=== PATIENT | female | born 1935 | race Hispanic/Latino ===

== ENCOUNTER → 2017-11-08 | Day surgery (SDC) | payer MEDICARE, OTHER ==
[2017-11-07 14:34] LABS: BASOPHILS % 0.4 % (0.0-1.0); EOSINOPHILS # (AUTO) 0.1 (0.0-0.4); EOSINOPHILS % 1.5 % (0.0-6.0); HEMATOCRIT 41.7 % (34.2-44.1); HEMOGLOBIN 13.5 g/dL (12.0-16.0); LYMPHOCYTES # (AUTO) 2.3 (1.0-3.2); LYMPHOCYTES % 34.9 % (18.0-39.1); MEAN CORPUSCULAR HEMOGLOBIN 33.7 pg (28-32); MEAN CORPUSCULAR HGB CONC 32.4 g/dL (31-35); MONOCYTES # (AUTO) 0.5 (0.2-0.8); MONOCYTES % 7.8 % (4.4-11.3); NEUTROPHILS # (AUTO) 3.7 (2.1-6.9); NEUTROPHILS % 55.3 % (38.7-80.0); PLATELET COUNT 253 x10e3/uL (140-360); RED BLOOD COUNT 4.01 x10e6/uL (3.6-5.1); RED CELL DISTRIBUTION WIDTH 12.4 % (11.7-14.4)
[~2017-11-08] MED LIST: ALBUTEROL0.63 MG/3 INH; BETADINE30 ML TOP; CENTRUM SILVER1 EAC3 PEG; ESMOLOL HCL 100MG/10ML 10 MG/ML VIAL ONE; EVISTA60 MG PEG; FENTANYL CITRATE/PF 100MCG/2 ML INJ ONE; FOLIC ACID1 MG PEG; MIRTAZAPINE15 MG PEG; OSCAL PEG; PANTOPRAZOLE SO40 MG PEG; PRAVASTATIN SOD40 MG PEG; PROPOFOL IV EMULSION 10 MG/ML 50 ML VIAL ONE; RANITIDINE HCL300 M1 PEG; VIT B12 PEG
[2017-11-08 15:35] VITALS: BP 135/65
--- NOTE | 2017-11-08 15:56 | Operative Report ---
DATE OF PROCEDURE: November 08, 2017 REFERRING PHYSICIAN: Liam Shay MD PROCEDURE PERFORMED: Esophagogastroduodenoscopy and percutaneous endoscopic gastrostomy tube replacement. INDICATIONS FOR THE PROCEDURE: Dysphagia, G-tube dependent, dysfunctional G-tube. MEDICATION: Patient was done under MAC. Please see anesthesiologist's note. PROCEDURE: With the patient in the left lateral decubitus position, the flexible fiberoptic Olympus gastroscope was introduced into the esophagus under direct visualization without any difficulty. There was some patchy erythema noted in the distal esophagus. The scope was then advanced with ease into the stomach. The mucosa overlying the antrum and the body revealed some patchy erythema. The pylorus was of normal contour and shape. It was intubated with ease, and the scope was advanced all the way to the 2nd portion of the duodenum. The scope was then withdrawn slowly. Mucosa overlying the proximal 2nd portion and the duodenal bulb appeared to be within normal limits. The scope was then withdrawn back into the stomach and retroflexed. Mucosa overlying the fundus and cardia appeared to be within normal limits. The scope was then straightened out. The balloon-tipped G-tube was then removed in the usual fashion. PEG tube replacement was carried out through the old G-tube stoma. The scope was subsequently withdrawn after documenting a good positioning of the intragastric bumper. Patient tolerated the procedure well. IMPRESSION 1. Mild distal esophagitis. 2. Gastritis, mild. 3. Percutaneous endoscopic gastrostomy tube placement carried out in the usual fashion through the old gastrostomy tube stoma. PLAN: Can use G-tube upon return to home. Job#: [id number] cc:LIAM SHAY MD
== END | disposition home or self-care (01) ==
LOC: OR 12:56
PROVIDERS: ATTEND Internal Medicine Gastroenterology
DX: K94.23 Gastrostomy malfunction (principal); K29.70 Gastritis, unspecified, without bleeding; K20.9 Esophagitis, unspecified; N18.9 Chronic kidney disease, unspecified; K21.9 Gastro-esophageal reflux disease without esophagitis; I44.7 Left bundle-branch block, unspecified; Z01.810 Encounter for preprocedural cardiovascular examination; Z01.812 Encounter for preprocedural laboratory examination; Z85.21 Personal history of malignant neoplasm of larynx
CPT/HCPCS: 36415; 43246; 85025; 93005

== ENCOUNTER 2018-08-01 19:46 | Observation (INO) | payer MEDICARE ==
[~2018-08-01] VITALS: Ht 154.9 cm; Wt 60.8 kg
[~2018-08-01 19:46] MED LIST changes: -ESMOLOL HCL 100MG/10ML 10 MG/ML VIAL ONE; -FENTANYL CITRATE/PF 100MCG/2 ML INJ ONE; -PROPOFOL IV EMULSION 10 MG/ML 50 ML VIAL ONE
--- OUTSIDE RECORDS SUMMARY | 2018-08-01 19:49 | XMS REPORT ---
[facility] Address Unknown Phone Unavailable Care Team Providers Care Coring Machine Operator Name Role Phone Unavailable Unavailable Payers Payer Name Policy Type Policy Number Effective Date Expiration Date Problems This patient has no known problems. Allergies, Adverse Reactions, Alerts Allergy Name Allergy Type Status Severity Reaction(s) Onset Date Inactive Date Treating Clinician Comments No Known Allergies DA Active U 2017-04-20 00:00:00 Medications This patient has no known medications.
[2018-08-01] MEDS ORDERED: D5.45%NS/KCL 20MEQ 1,000 ML IV ONE (23:00)
[2018-08-01] MEDS ORDERED: ONDANSETRON HCL INJ 2MG/ML 2ML 2 MG/ML VIAL IV PRN (23:00)
[2018-08-01 23:11] LABS: BASOPHILS % 0.4 % (0.0-1.0); EOSINOPHILS # (AUTO) 0.2 (0.0-0.4); EOSINOPHILS % 3.4 % (0.0-6.0); HEMATOCRIT 40.4 % (34.2-44.1); HEMOGLOBIN 13.4 g/dL (12.0-16.0); LYMPHOCYTES # (AUTO) 1.5 (1.0-3.2); LYMPHOCYTES % 25.8 % (18.0-39.1); MEAN CORPUSCULAR HEMOGLOBIN 33.6 pg (28-32); MEAN CORPUSCULAR HGB CONC 33.2 g/dL (31-35); MEAN CORPUSCULAR VOLUME 101.3 fL (81-99); MONOCYTES # (AUTO) 0.6 (0.2-0.8); NEUTROPHILS # (AUTO) 3.3 (2.1-6.9); NEUTROPHILS % 59.2 % (38.7-80.0); PLATELET COUNT 221 x10e3/uL (140-360); RED BLOOD COUNT 3.99 x10e6/uL (3.6-5.1)
[2018-08-01 23:22] LABS: INR 0.87; PARTIAL THROMBOPLASTIN TIME 28.4 seconds (23.8-35.5); PROTHROMBIN TIME 12.3 seconds (11.9-14.5)
[2018-08-01 23:28] LABS: ANION GAP 14.7 mmol/L (8-16); BLOOD UREA NITROGEN 28 mg/dL (7-26); CALCIUM 9.6 mg/dL (8.4-10.2); CARBON DIOXIDE 26 mmol/L (22-29); CHLORIDE 103 mmol/L (98-107); GLUCOSE 84 mg/dL (74-118); POTASSIUM 4.7 mmol/L (3.5-5.1); SODIUM 139 mmol/L (136-145)
--- NOTE | 2018-08-01 23:58 | NUR ---
Got report from Elizabeth, ER nurse. call light within reach. family at bedside. patient has a trach and will mouth words in ugandan, understands some israeli. patient is A&Ox3. family helped with admission
[2018-08-02] VITALS (7 sets, daily range): BP systolic 117–141; BP diastolic 54–63
[2018-08-02 00:01] LABS: BUN/CREATININE RATIO 33 (6-25); CREATININE, SERUM 0.81 mg/dL (0.57-1.11); EST GLOMERULAR FILTRATION RATE > 60 ML/MIN (60-)
[2018-08-02] MEDS ORDERED: MIRTAZAPINE7.5 MG PEG (00:51)
[2018-08-02] MEDS ORDERED: PRAVASTATIN SOD20 MG PEG (00:52)
[2018-08-02] MEDS ORDERED: DICYCLOMINE HCL10 MG PEG (00:54)
[2018-08-02] MEDS ORDERED: METAMUCIL POWD174 GM PEG (00:55)
--- NOTE | 2018-08-02 04:53 | History and Physical ---
PRIMARY CARE DOCTOR: Arash Colindres MD CHIEF COMPLAINT: Malfunctioning PEG tube. HISTORY OF PRESENT ILLNESS: Ms. Aparicio is a pleasant 82-year-old female with nonfunctioning PEG tube. The patient was in usual state of health up to the last day. The last day there was increasing drainage noted from PEG tube. Attempts were made to troubleshoot. It was not clear initially why the patient was wetting the area. The patient's stoma site was covered with feeds and was unable to be kept dry. Eventually, the daughter noted a tear in the shaft of the PEG tube. She contacted her doctor and she was ordered to come to the emergency room. In the emergency room, it was confirmed that the PEG tube was dysfunctional with a tear. She was admitted to observation for rapid correction of this issue. As the PEG tube had a special lock on it, GI specialty services was required to change it out. 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 The patient had local excision. The patient had radiation therapy with the ENT doctor. The patient had tracheostomy tube #6 cuffless Shiley, which is in place and is being changed out every 1 to 2 months. The patient had to get a PEG tube as well due to radiation related dysphagia. Last change of PEG tube was in November 2017 and the patient's family is aware. PAST MEDICAL HISTORY: GERD, vocal cord cancer status post local excision and radiation, tracheostomy tube, hysterectomy, and knee status post surgery. MEDICATIONS: Medication list reviewed per the chart record. ALLERGIES: NO KNOWN DRUG ALLERGIES. SOCIAL HISTORY: No smoking. No drinking. No drugs. The patient with very supportive family. FAMILY HISTORY: Noncontributory to this. REVIEW OF SYSTEMS: The patient cannot disclose as she is not talking. Tracheostomy is open and cuffless. OBJECTIVE: VITAL SIGNS: Afebrile, vital signs stable, reviewed per the chart record. GENERAL: In no acute distress, alert and calm. HEENT: Normocephalic and atraumatic. NECK: Supple. Throat midline. LUNGS: Bilateral air entry, rare rhonchi, no wheeze. CARDIOVASCULAR: S1, S2. No murmurs, rubs, or gallops. ABDOMEN: Soft and nontender. EXTREMITIES: No clubbing, no cyanosis, there is no edema. INTEGUMENT: No rash or purpura. LABORATORY DATA: 5.6 white count, 40 hematocrit. 4.7 potassium, 28 BUN, 0.8 creatinine. Coagulation times normal. Platelets are 221. IMPRESSION AND PLAN: 1. Malfunction PEG tube. 2. Dysphagia, cannot take oral intake. 3. Vocal cord cancer in April 2017, status post surgery and XRT. 4. History of tracheostomy tube, cuffless. 5. Gastroesophageal reflux disease. 6. History of raloxifene use, unknown to me reason. 7. Hyperlipidemia. Maintain tracheostomy tube in place. The patient goes for endoscopy backup cuff tracheostomy tube 6.0 any even 4.0 should be made available with cuff in case ventilation is needed. By history, the family says the tracheostomy tube can be changed out without any special guidance or difficulty. N.p.o. Tentative endoscopy for PEG tube replacement. If it goes well, the patient can possibly be discharged very soon. Follow up closely. Some supportive IV fluid, while the patient is n.p.o. Thank you very much, Dr. Colindres, for allowing me a chance to participate in the care of Ms. Aparicio. Do not hesitate to contact me if I can help in anyway. MD GIDEON Faria/LISA /[id number]
--- NOTE | 2018-08-02 07:08 | NUR ---
patient in bed. Call light within reach. Gave report to oncoming nurse
--- NOTE | 2018-08-02 07:30 | NUR ---
Pt in bed AAOx3 in no acute distress noted, trach collar in place with humidified O2, patient mouthing responses to conversation and nods to response yes. She is lying comfortably in bed. Informed to be NPO for a scheduled PEG tube repair and possible EGD. Pt nodded to response her understanding of the plan of care. Instructed to use her call light for assistance and bed alarm is activated to response when pt gets oob to bedside commode. IVF infusing well to RAC with no signs of infiltration. Will continue to monitor.
--- NOTE | 2018-08-02 10:05 | NUR ---
Patient off unit to Endo with family at side.
--- NOTE | 2018-08-02 12:00 | NUR ---
Received pt from PACU via bed s/p peg tube repair. Peg tube site CDI. She is aaox3, resp even and non labored 3L humidified O2 via trach collar. Pt denies pain. Instructed to call for assistance. Will cont to monitor.
--- NOTE | 2018-08-02 12:05 | Operative Report ---
DATE OF PROCEDURE: 08/02/2018 SURGEON: Hernan Ambrose MD PROCEDURE: Esophagogastroduodenoscopy with PEG tube replacement. INDICATIONS FOR PROCEDURES: Dysfunctional G-tube, history of vocal cord cancer, PEG tube dependent. MEDICATIONS: The patient was done under MAC, please see anesthesiologist's note. 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 There was some patchy erythema noted in distal esophagus. Mucosa overlying the antrum and the body revealed some patchy erythema. Pylorus was of normal contour and shape, it was intubated with ease and the scope was advanced all the way to the proximal second portion, it was then withdrawn slowly whatever was visualized. The proximal second portion and duodenal bulb appeared to be within normal limits. The scope was then withdrawn back into the stomach and retroflexed, mucosa overlying the fundus and cardia appeared to be within normal limits. The scope was then straightened out. The OG tube was removed per the pull-traction method. PEG tube replacement was carried out in usual fashion through the OG tube stoma. The scope was subsequently withdrawn after documenting a good positioning of the intragastric bumper. The patient tolerated the procedure well. IMPRESSION AND PLAN: 1. Distal esophagitis, mild. 2. Gastritis, mild. 3. PEG tube replacement carried out in usual fashion through the OG tube stoma. The patient tolerated the procedure well. Can use G-tube upon return to floor. Hernan Ambrose MD [facility] /[id number] cc: Arash Colindres MD
--- NOTE | 2018-08-02 12:18 | NUR ---
Per Dr. Gerardo Ambrose patient may be discharged home today.
[2018-08-02] MEDS ORDERED: LIDOCAINE HCL 2% LOCAL INJ 5 ML SDV VIAL INJ ONE (17:22)
[2018-08-02] MEDS ORDERED: PROPOFOL IV EMULSION 10 MG/ML 50 ML VIAL ONE (17:22)
--- NOTE | 2018-08-03 03:52 | Discharge Summary ---
PRIMARY CARE DOCTOR: Arash Colindres MD PRIMARY DIAGNOSIS: Malfunction PEG tube. SECONDARY DIAGNOSES: Include: 1. Postoperative stay, status post PEG tube placement. 2. Dysphagia, severe, and cannot take oral intake. 3. Vocal cord cancer in April 2017, status post surgery and XRT. 4. History of tracheostomy tube. 5. Gastroesophageal reflux disease. 6. Hyperlipidemia. HOSPITAL COURSE: Ms. Aparicio was seen and examined at bedside and was found to be a tear in her PEG tube. She was admitted for observation as she was having no other access for oral intake nor fluid or hydration intake. The patient had endoscopic replacement of PEG tube the following day by Dr. Hernan Ambrose, gastrointestinal specialist. Thereafter, the patient was allowed to discharge for an outpatient followup with Dr. Min Tanner, her ENT doctor as well as Dr. Colindres. MEDICATIONS ON DISCHARGE: See medicine list for details. DIET: Resume tube feeding. ACTIVITY: As tolerated, assist device is by walker. FOLLOWUP: Followup with Dr. Min Tanner, Dr. Arash Colindres, and Dr. Hernan Ambrose. Greater than 30 minutes spent in coordination and care for discharge planning. MD GIDEON Faria/LISA /[id number]
== END 2018-08-02 14:15 | disposition home or self-care (01) ==
LOC: ER 19:46 → ERHOLD 22:57 → IMCU 23:58
PROVIDERS: ADMIT Internal Medicine Critical Care Medicine; ATTEND Internal Medicine Critical Care Medicine
DX: K94.23 Gastrostomy malfunction (principal); D64.9 Anemia, unspecified; Z85.21 Personal history of malignant neoplasm of larynx; R13.10 Dysphagia, unspecified; K21.9 Gastro-esophageal reflux disease without esophagitis; E78.5 Hyperlipidemia, unspecified; Z93.0 Tracheostomy status; K21.0 Gastro-esophageal reflux disease with esophagitis; K29.70 Gastritis, unspecified, without bleeding
CPT/HCPCS: 36415; 43246; 80048; 85025; 85610; 85730; 99284; G0378 ×2; J2001; J2704

== ENCOUNTER → 2018-08-20 | Outpatient (CLI) | payer MEDICARE ==
[~2018-08-20] MED LIST changes: +DICYCLOMINE HCL10 MG PEG; +METAMUCIL POWD174 GM PEG; +MIRTAZAPINE7.5 MG PEG; +PRAVASTATIN SOD20 MG PEG
--- NOTE | 2018-08-20 14:54 | Diagnostic Imaging Report ---
EXAM: Modified barium swallow with Speech Pathologist INDICATION: ^[id number] ^1230 ^DYSPHAGIA COMPARISON: None available. RADIATION DOSE: Fluoroscopy Time: 1.4 min Dose (Kerma) Area Product: 1.1 Gycm2 Air Kerma (AK) value has been reviewed. It is below the limits set by the Radiation Protocol Committee (RPC) committee. FINDINGS: See impression IMPRESSION: Trace laryngeal penetration with all consistencies. Trace aspiration with all consistencies. Refer to speech pathology report for detailed description and recommendations. Signed by: Dr. Matt Quach M.D. on 08/20/2018 2:51 PM
== END ==
LOC: DX 09:54
PROVIDERS: ATTEND Otolaryngology
DX: R13.10 Dysphagia, unspecified (principal)
CPT/HCPCS: 74230

== ENCOUNTER → 2018-10-02 | Outpatient (RCR) | payer MEDICARE ==
--- NOTE | 2018-09-13 12:33 | NUR ---
ST NOTE: Pt has home care with PT and nursing, family notified to get d/c summary faxed to this office bf speech Therapy with NMES to treat dysphagia can be initiated, verbalized understanding
--- NOTE | 2018-09-18 16:09 | NUR ---
Clinical Swallow Evaluation/Initial Treatment Session Passy Ferron Speaking Valve (PMV) Evaluation Patient is an 82 year old female with diagnosis of dysphagia. PMH includes dx of cancer of the vocal fold in April,. Per pt/family, radiation treatment ended December,. PEG and #8 Shiley trach placed April,. Per family, pt initially tolerated Passy Austin Speaking Valve (PMV) with original #8 Shiley trach. However, soon after size was reduced to #6 Shiley, pt no longer tolerated the PMV as well and now does not use the PMV at all. Per report, pt cannot even tolerate finger occlusion of the trach without coughing or complaining of difficulty breathing. Pt participated in a modified barium swallow study on 08/20/18. Pt presented with severe pharyngeal dysphagia c/b aspiration of multiple consistencies and consistent vallecular residue after the swallow. Dysphagia was judged to be secondary to reduced laryngeal elevation, pharyngeal constriction, and subglottic pressure. Recommendation was made for dysphagia therapy to increase strength and coordination of swallow. Patient was seen today in the outpatient clinic for initial treatment of Neuromuscular Electrical Stimulation (NMES) with VitalStim Therapy and traditional dysphagia therapy with pharyngeal exercises. Pt was seen with her daughter present. Pt was German speaking only. Per pt request, pts daughter provided translation assistance. Patient tolerates room air but uses 2L O2 when ambulating and to keep mucous thin for ease of clearing trach. Hearing appeared to be WFL. Provided extensive education re: basic anatomy and physiology of swallow structures, need for therapy, purpose of exercises and NMES, and future plan of care. Pt indicated understanding. Pt was given intermittent teaspoon sized trials of water. Pt was instructed to take small sips and swallow hard, feeling all the muscles in her throat contract. Placement 3b was used to target the mylohyoid muscle, the anterior belly of the digastric muscle, the sternohyoid muscle, the omohyoid muscle, the geniohyoid muscle, and the middle pharyngeal constrictors. Channel 1 of the electrodes was aligned horizontally just above the hyoid bone and channel 2 of the electrodes was aligned horizontally at the level of the thyroid notch. This placement was used to improve base of tongue strength, pharyngeal constriction, and UES function. Pt initially tolerated 5.0 mA, but as the session progressed pt tolerated 14.0 mA. Pt received 45 minutes of stimulation. Cough noted X 4, throat clear X 1. Completed evaluation for use of PMV. Pt with #6 Shiley cuffless [address]ach in place. Pt has trach collar with O2 PRN. Pt did not wear trach collar during this evaluation. Completed trials with finger occlusion. Pt able to achieve phonation for 1-2 second intervals. Provided extensive education re: benefits and risks associated with use of PMV and best way to approach re-training and becoming re-acclimated with its use. Completed trials with PMV in-line with trach, each 10 seconds in length. Pt noted to reduce respiratory rate with use of PMV. Moderate breath stacking noted when PMV removed from trach. Education provided as indicated. All questions were answered. Impressions: Pt tolerated initial session of NMES well. Pt continues to report and demonstrate s/s of aspiration during swallows of material for pleasure which significantly interferes with her quality of life. Pt is a good candidate for dysphagia exercises and NMES for improvement of strength and coordination of swallow. Recommendations: 1.Dysphagia therapy to include traditional exercises and NMES 3X/week for 4 weeks for a total of 12 treatment sessions 2.Home exercise program 3.Trials and training with use of PMV 4.Repeat MBS in 4 weeks with new goals to be determined at that time Pharmacy Picking Tech Goal: 1. Pt will tolerate least restrictive diet without s/s of aspiration as judged by an objective evaluation. 2.Pt will use PMV for functional communication with independence. Short Term Goals: 1.Pt will complete 3 repetitions of a set of dysphagia exercises to improve laryngeal elevation, base of tongue retraction, and laryngeal closure, 10 repetitions per exercise, with minimal cues. 2.Pt will tolerate NMES for 45 60 minutes with no clinical s/s of aspiration to improve strength of pharyngeal constrictors, hyolaryngeal excursion, and safety with po intake. 3.Pt will complete home dysphagia exercise program targeting laryngeal elevation, base of tongue strength, and cricopharyngeal function independently. 4.Pt will follow aspiration precautions with independence. 5.Pt will participate in a repeat Modified Barium Swallow study to objectively re-assess swallow safety and function and determine safest diet. 6.Pt will participate in trials and training with PMV with a goal of wearing PMV for 10 uninterrupted minutes. 7.Pt will achieve functional speech with either finger occlusion or use of PMV with independence. Nohelia Chand M.A. [facility] [employer] Date of Session: 09/18/18 Dysphagia Evaluation X 40 minutes Analysis of Voice X 20 minutes NOMS Rating for Swallowing: Level 1
== END ==
LOC: ST 09-13 11:40
PROVIDERS: ATTEND Otolaryngology
DX: R13.13 Dysphagia, pharyngeal phase (principal); Z93.0 Tracheostomy status

== ENCOUNTER → 2018-10-22 | Outpatient (CLI) | payer MEDICARE ==
--- NOTE | 2018-10-22 17:39 | Diagnostic Imaging Report ---
Modified barium swallow, 10/22/2018. History: Dysphagia. Fluoro time: 1.1 min. Dose: 3.8 mGy (JERRY) Technique: Fluoroscopy was performed by donor center technician. A radiologist was not present for exam. Fluoroscopic observation and imaging of the oral cavity, oropharynx, and hypopharynx was performed in the lateral projection during swallowing of liquids and solids, administered by speech pathology. See speech pathologist report for findings. Signed by: Roberto Brewster on 10/22/2018 5:35 PM
== END ==
LOC: DX 12:37
PROVIDERS: ATTEND Otolaryngology
DX: R13.13 Dysphagia, pharyngeal phase (principal); Z85.21 Personal history of malignant neoplasm of larynx
CPT/HCPCS: 74230

== ENCOUNTER 2018-11-01 11:55 | Outpatient (RCR) | payer MEDICARE | END 2018-11-02 | LOC: ST 11:55 | PROVIDERS: ATTEND Otolaryngology | DX: R13.13 Dysphagia, pharyngeal phase (principal); Z85.818 Personal history of malignant neoplasm of other sites of lip, oral cavity, and pharynx; Z93.0 Tracheostomy status ==

== ENCOUNTER 2018-11-14 11:51 | Outpatient (RCR) | payer MEDICARE ==
--- NOTE | 2018-11-21 11:30 | NUR ---
ST NOTE: Pt's daughter cx apt for inclement weather, she will be present for therapy on 11/22/18
== END 2018-12-02 ==
LOC: ST 11:51
PROVIDERS: ATTEND Otolaryngology
DX: R13.13 Dysphagia, pharyngeal phase (principal); Z85.21 Personal history of malignant neoplasm of larynx

== ENCOUNTER → 2018-12-04 | Outpatient (CLI) | payer MEDICARE ==
--- NOTE | 2018-12-06 08:47 | Diagnostic Imaging Report ---
PROCEDURE: X-RAY MODIFIED BARIUM SWALLOW COMPARISON: Dysphasia INDICATION: Aspiration Radiation Details: Fluoroscopy time: 2.5 minutes Cumulative dose: 12.9 mGy DISCUSSION: Fluoroscopic examination was performed in conjunction with speech pathology during swallowing a variety of thin and thick liquid consistencies. Provided images demonstrate laryngeal penetration and silent noemy aspiration. CONCLUSION: Modified barium swallow demonstrating laryngeal penetration and silent noemy aspiration. Please refer to the speech pathology report for further details. Signed by: Santiago Ngo MD on 12/06/2018 8:43 AM
== END ==
LOC: DX 12:03
PROVIDERS: ATTEND Otolaryngology
DX: R13.13 Dysphagia, pharyngeal phase (principal); Z85.89 Personal history of malignant neoplasm of other organs and systems
CPT/HCPCS: 74230

== ENCOUNTER → 2019-04-09 | Outpatient (CLI) | payer MEDICARE ==
--- NOTE | 2019-04-09 14:19 | Diagnostic Imaging Report ---
Chest, 2 views, 04/09/2019. History: Cough, pneumonia. Comparison: None available. Findings: The cardiomediastinal silhouette and pulmonary vasculature are within normal limits. There is minimal biapical pleural thickening. There is eventration of the hemidiaphragms. Patchy opacity is seen posteriorly only on the lateral view. There is scoliosis of the thoracolumbar spine with diffuse degenerative disease. Old right rib fractures are present. There are no acute osseous or soft tissue abnormalities. Impression: Posterior basilar opacity seen only on the lateral view, concerning for pneumonia. Recommend follow-up after treatment. Signed by: Roberto Brewster on 04/09/2019 2:17 PM
== END ==
LOC: RAD 13:11
PROVIDERS: ATTEND Otolaryngology
DX: J18.9 Pneumonia, unspecified organism (principal); R05 Cough
CPT/HCPCS: 71046

== ENCOUNTER 2019-04-16 10:59 | Outpatient (RCR) | payer MEDICARE | END 2019-05-03 | LOC: ST 10:59 | PROVIDERS: ATTEND Otolaryngology | DX: R13.13 Dysphagia, pharyngeal phase (principal); Z85.21 Personal history of malignant neoplasm of larynx ==

== ENCOUNTER → 2019-04-17 | Outpatient (CLI) | payer MEDICARE ==
--- NOTE | 2019-04-17 13:22 | Diagnostic Imaging Report ---
Exam: Modified barium swallow Clinical history: Dysphasia Fluoroscopy Time: 2.0 min. Reference Air Kerma (Ka, r): 8.24 mGy. FINDINGS/IMPRESSION: Modified barium swallow was performed by the speech pathologist. Radiologist was not present during the evaluation. Please refer to the speech pathology report for further details. Signed by: Dr. Roman Pastrana MD on 04/17/2019 1:19 PM
== END ==
LOC: DX 10:44
PROVIDERS: ATTEND Otolaryngology
DX: R13.13 Dysphagia, pharyngeal phase (principal)
CPT/HCPCS: 74230

== ENCOUNTER → 2021-04-27 | Day surgery (SDC) | payer MEDICARE ==
[2021-04-26 11:40] LABS: BASOPHILS % 0.4 % (0.0-1.0); EOSINOPHILS # (AUTO) 0.1 (0.0-0.4); EOSINOPHILS % 2.1 % (0.0-6.0); HEMATOCRIT 36.6 % (34.2-44.1); HEMOGLOBIN 11.7 g/dL (12.0-16.0); LYMPHOCYTES # (AUTO) 0.9 (1.0-3.2); LYMPHOCYTES % 19.2 % (18.0-39.1); MEAN CORPUSCULAR VOLUME 106.4 fL (81-99); MONOCYTES # (AUTO) 0.5 (0.2-0.8); MONOCYTES % 9.5 % (4.4-11.3); NEUTROPHILS # (AUTO) 3.3 (2.1-6.9); NEUTROPHILS % 68.6 % (38.7-80.0); PLATELET COUNT 335 x10e3/uL (140-360); RED BLOOD COUNT 3.44 x10e6/uL (3.6-5.1); RED CELL DISTRIBUTION WIDTH 12.6 % (11.7-14.4)
[~2021-04-27] MED LIST changes: +FAMOTIDINE20 MG PEG; +LACTAID3000 UNI1 PEG; +LIDOCAINE HCL 2% LOCAL INJ 5 ML SDV VIAL INJ ONE; +PROBIOTIC & AC1 EACH PO; +PROPOFOL IV EMULSION 10 MG/ML 20 ML VIAL ONE; +VITAMIN B-121000 MC2 IM; +VITAMIN B-121000 MCG IM
[2021-04-27 12:45] VITALS: BP 156/71
== END | disposition home or self-care (01) ==
LOC: OR 08:22
PROVIDERS: ATTEND Internal Medicine Gastroenterology
DX: K94.29 Other complications of gastrostomy (principal); K22.2 Esophageal obstruction; K29.70 Gastritis, unspecified, without bleeding; R03.0 Elevated blood-pressure reading, without diagnosis of hypertension; E78.5 Hyperlipidemia, unspecified; I44.7 Left bundle-branch block, unspecified; Z01.810 Encounter for preprocedural cardiovascular examination; Z01.812 Encounter for preprocedural laboratory examination; Z20.822 Contact with and (suspected) exposure to COVID-19; Z79.899 Other long term (current) drug therapy; Z85.21 Personal history of malignant neoplasm of larynx; Z85.819 Personal history of malignant neoplasm of unspecified site of lip, oral cavity, and pharynx; Z92.3 Personal history of irradiation
CPT/HCPCS: 36415; 43235; 85025; 93005; C9113; J2001; J2704; U0002

== ENCOUNTER → 2021-05-24 | Day surgery (SDC) | payer MEDICARE ==
[2021-05-20 14:30] LABS: BASOPHILS % 0.5 % (0.0-1.0); EOSINOPHILS # (AUTO) 0.2 (0.0-0.4); EOSINOPHILS % 3.6 % (0.0-6.0); HEMATOCRIT 37.3 % (34.2-44.1); HEMOGLOBIN 12.3 g/dL (12.0-16.0); LYMPHOCYTES # (AUTO) 1.2 (1.0-3.2); LYMPHOCYTES % 22.1 % (18.0-39.1); MEAN CORPUSCULAR HEMOGLOBIN 34.6 pg (28-32); MEAN CORPUSCULAR VOLUME 104.8 fL (81-99); MONOCYTES # (AUTO) 0.6 (0.2-0.8); MONOCYTES % 11.4 % (4.4-11.3); NEUTROPHILS # (AUTO) 3.5 (2.1-6.9); PLATELET COUNT 237 x10e3/uL (140-360); RED BLOOD COUNT 3.56 x10e6/uL (3.6-5.1)
[~2021-05-24] MED LIST changes: +POVIDONE IODINE 0.05% 0.05 % ML PO ONE
[2021-05-24 15:00] VITALS: BP 127/61
== END | disposition home or self-care (01) ==
LOC: OR 12:20
PROVIDERS: ATTEND Internal Medicine Gastroenterology
DX: K94.23 Gastrostomy malfunction (principal); K22.2 Esophageal obstruction; K29.70 Gastritis, unspecified, without bleeding; E78.5 Hyperlipidemia, unspecified; M19.90 Unspecified osteoarthritis, unspecified site; Y83.3 Surgical operation with formation of external stoma as the cause of abnormal reaction of the patient, or of later complication, without mention of misadventure at the time of the procedure; Z01.812 Encounter for preprocedural laboratory examination; Z20.822 Contact with and (suspected) exposure to COVID-19; Z79.899 Other long term (current) drug therapy; Z85.21 Personal history of malignant neoplasm of larynx
CPT/HCPCS: 36415; 43246; 43248; 85025; J2001; J2704; U0002; 76000